=== PATIENT | male | born 1955 | race Caucasian/White ===

== ENCOUNTER → 2016-12-29 | Outpatient (CLI) | payer BC | END | disposition short-term general hospital (02) | LOC: CLVASC 13:01 | DX: L97.914 Non-pressure chronic ulcer of unspecified part of right lower leg with necrosis of bone (principal) ==

== ENCOUNTER → 2017-01-12 | Outpatient (CLI) | payer BC | END | disposition short-term general hospital (02) | LOC: CLVASC 01:45 → EDSTATUS 13:08 → CLVASC 13:11 | DX: E11.621 Type 2 diabetes mellitus with foot ulcer (principal); L97.519 Non-pressure chronic ulcer of other part of right foot with unspecified severity; Z89.421 Acquired absence of other right toe(s) ==

== ENCOUNTER → 2017-01-26 | Outpatient (CLI) | payer BC, OTHER | END | disposition short-term general hospital (02) | LOC: CLVASC 13:04 | DX: Z47.81 Encounter for orthopedic aftercare following surgical amputation (principal); Z89.421 Acquired absence of other right toe(s) ==

== ENCOUNTER → 2017-02-09 | Outpatient (CLI) | payer BC | END | disposition short-term general hospital (02) | LOC: CLVASC 10:43 | DX: L97.519 Non-pressure chronic ulcer of other part of right foot with unspecified severity (principal); Z89.421 Acquired absence of other right toe(s) ==